=== PATIENT | female | born 1965 | race Caucasian/White ===

== ENCOUNTER 2022-04-07 06:58 | Outpatient (RCR) | payer OTHER, SELFPAY ==
[2022-04-10 12:00] LABS: Adrenocorticotropic Hormone 23 pg/mL (6-50)
== END 2022-07-06 23:59 | disposition home or self-care (01) ==
LOC: ANHVASCINF 06:58
PROVIDERS: Visit Provider Internal Medicine Endocrinology, Diabetes & Metabolism
DX: E04.1 Nontoxic single thyroid nodule (principal); R42 Dizziness and giddiness; I10 Essential (primary) hypertension
CPT/HCPCS: 36415; 82024; 82533; 96372; J0834